=== PATIENT | female | born 1970 | race Caucasian/White ===

== ENCOUNTER 2021-07-21 20:28 | Emergency (ER) | payer BC ==
[~2021-07-21] VITALS: Ht 170.2 cm; Wt 95.5 kg
[2021-07-21 20:38] VITALS: BP 163/106
== END 2021-07-22 00:26 | disposition left against medical advice (07) ==
LOC: ER 20:28
DX: M54.2 Cervicalgia (principal); Z20.822 Contact with and (suspected) exposure to COVID-19
CPT/HCPCS: 87635; C9803